=== PATIENT | male | born 1985 | race Caucasian/White ===

== ENCOUNTER 2016-12-11 09:03 | Emergency (ER) | payer OTHER, BC ==
[~2016-12-11] VITALS: Ht 193 cm; Wt 114.6 kg
[~2016-12-11 09:03] MED LIST: ASCO500T16 PO; ATOM100C PO; B-COTAB18; CHOL100010 PO; GARL400T4 PO; OMEG10007 PO; OMEP20CA9 PO
[2016-12-11 09:10] VITALS: TEMP 36.5; Ht 193 cm; Wt 114.6 kg
[2016-12-11] MEDS ORDERED: GARL1TAB13 PO (09:22)
[2016-12-11] MEDS ORDERED: CHOL1000 PO (09:22)
[2016-12-11] MEDS ORDERED: SODIUM CHLORIDE 0.9% 1000ML 1,000 ML IV ONE (09:45)
[2016-12-11 10:28] LABS: BASO % 0.2 %; BASO ABS # 0.03 K/uL (0-0.2); COMPLETE YES; EOS % 0.1 %; HEMATOCRIT 44.1 % (42-52); IG% 0.3 %; LYMPH % 8.6 %; LYMPH ABS # 1.14 K/uL (1.2-3.4); MEAN CELL VOLUME 87.3 fL (80-100); MEAN CORPUSCULAR HEMOGLOBIN 30.3 pg (25-34); MEAN CORPUSCULAR HGB CONC 34.7 g/dl (32-36); MEAN PLATELET VOLUME 10.2 fL (7.4-10.4); MONO % 8.7 %; NEUT % 82.1 %; PLATELET COUNT 195 K/uL (130-400); RED BLOOD COUNT 5.05 M/uL (4.7-6.1); WHITE BLOOD COUNT 13.28 K/uL (4.8-10.8)
[2016-12-11 10:47] LABS: BUN/CREATININE RATIO 9.2 (10-20); CALCIUM 8.9 mg/dl (8.5-10.1); CREATININE 1.4 mg/dl (0.60-1.40); POTASSIUM 3.7 mmol/L (3.5-5.1)
--- NOTE | 2016-12-11 11:11 | DIAGNOSTIC IMAGING REPORT ---
C-SPINE ROUTINE 4 OR 5 VIEWS CLINICAL HISTORY: Neck pain following trauma. COMPARISON STUDY: Cervical spine CT January 30, 2012. FINDINGS: Alignment of the cervical spine is anatomic. Vertebral body heights are maintained. There is no acute fracture. Prevertebral soft tissues are unremarkable. Facet joints are intact. There is minimal multilevel bony neural foraminal narrowing. IMPRESSION: No cervical spine fracture or subluxation. Electronically signed by: Rickie Ford M.D. 12/11/2016 11:10 AM Dictated Date/Time: 12/11/2016 11:07 AM
--- NOTE | 2016-12-11 11:13 | DIAGNOSTIC IMAGING REPORT ---
PA CHEST RADIOGRAPH AND UPRIGHT AND SUPINE AP RADIOGRAPHS OF THE ABDOMEN CLINICAL HISTORY: Fever and diarrhea. COMPARISON STUDY: No previous studies for comparison. FINDINGS: Lungs are clear. There is no pneumothorax or pleural effusion. Cardiac size is normal. Mediastinal contours are normal. There is no evidence for pulmonary edema. There is no free air. Bowel gas pattern is normal. IMPRESSION: 1. No free air or evidence of bowel obstruction. 2. No acute cardiopulmonary findings. Electronically signed by: Rickie Ford M.D. 12/11/2016 11:12 AM Dictated Date/Time: 12/11/2016 11:10 AM
[2016-12-11 11:30] VITALS: BP 123/72; PULSE 81; O2SAT 100
--- NOTE | 2016-12-11 16:23 | EMERGENCY ROOM VISIT NOTE ---
ED Visit Note First contact with patient: 09:20 Chief Complaint: Neck pain, fever and diarrhea. History of Present Illness: Mr. Walker is a 31-year-old white male who ambulates into the ED complaining of neck pain, fever and diarrhea. Patient reports she's been feeling well over the last few days. He reports he was at work yesterday at approximately 2:00 in the afternoon when a 1 inch tree limb fell approximately 3 feet and struck him at the base of the posterior neck in the bilateral shoulders. The limb did not strike his head. He did not have a loss of consciousness. Since that time he denies signs of head injury. Currently he is complaining of posterior neck pain in the area C6 and C7. He describes his pain as a combination of achy and burning. He rates his discomfort 7/10. The pain is nonradiating. Pain worsens with palpation of the painful area. He has not identified any alleviating factors related to the pain. He has not taken any medications for pain prior to arrival at the hospital. He denies any associated headache, dizziness, lightheadedness, abnormal neurological symptoms, upper extremity weakness/numbness/tingling. He reports when he went home last night approximately 10 PM he reports he developed a fever of 101F and then had the beginning of 6 episodes of light brown watery diarrheal stools. This is been associated with decreased appetite. He has not identified any aggravating or alleviating factors related to the fever or his diarrhea. He has not taken medications for the symptoms prior to arrival at the hospital. He denies any chills, sweats, skin eruptions , skin color changes, upper respiratory tract symptoms, abdominal pain, rectal bleeding, black/tarry stools, hematuria, urinary symptoms, recent antibiotic use , recent travel outside the [place], exposure to anybody with similar symptoms. Review of Systems: As noted above in history of present illness. All body systems were reviewed and found to be negative as noted above. Past Medical History: Seasonal allergies. Current Medications: Prilosec, Strattera, vitamin C, vitamin B, vitamin D3, garlic. Allergies to Medications: Penicillin. Social History: Patient is currently employed; he lives with his and children and feels safe in his home environment; he denies tobacco and alcohol use. Physical Examination: Vital Signs: Date Time Temp Pulse Resp B/P (MAP) Pulse Ox O2 Delivery O2 Flow Rate FiO2 12/11/16 11:30 81 16 123/72 100 Room Air 12/11/16 09:10 36.5 93 18 121/76 97 Room Air GENERAL: 31-year-old male in mild distress due to symptoms, nontoxic-appearing, afebrile and hemodynamically stable. NEUROLOGICAL: Awake, alert and oriented to person, place and time. Answering questions appropriately and following commands. Normal gait. Good hand eye coordination. No focal motor or sensory deficits. Romberg test negative. Pronator drift test negative. Cranial nerves II through XII grossly intact. Able to spell and count backwards. Good short-term and long-term recall. SKIN: Warm, dry and pink. Posterior Neck and Shoulders: Over the posterior neck in the area C6-C7 patient has 3 superficial abrasions and over the posterior shoulders at the level of the scapula patient has 2 small superficial abrasions. There are no signs of infection as area. There is no active bleeding. HEENT: Atraumatic and normocephalic. Skull: No bony deformities, depressions, tenderness or ecchymosis. No raccoon's eyes or coats signs. No drainage from the ears of the nostril; no hemotympanum. Face: No bony deformity, bony tenderness or swelling. PERRLA. EOMI without nystagmus. Sclera white and conjunctiva pink. No malocclusion. No intraoral trauma. Airway patent. Speech normal. No lymphadenopathy. Trachea midline. No jugular venous distention. BACK: No tenderness over the bony cervical and thoracic spine. Mild tenderness in the paraspinous muscles of the cervical spine in the area of C5- C7 with noted abrasions above. No bony deformity, crepitus or step-offs. No paraspinous muscle spasm. No CVA tenderness. THORAX: Lungs sounds are clear to auscultation and equal bilaterally with symmetrical chest wall. No crepitus, tenderness, subcutaneous air or deformities noted. HEART: Regular rate and rhythm. No gallops, rubs or murmurs are appreciated. ABDOMEN: Flat, soft and nontender. Positive bowel sounds in all quadrants. No guarding, rigidity or organomegaly. EXTREMITIES: Moves all extremities well on command and with purpose. All distal neurovascular statuses are intact and equal bilaterally. Upper Extremities: 5/5 muscle strength in all movements of the shoulders, elbows, forearms, wrists and hands. ED Course: Patient is assessed as noted above. Patient's medication list was reviewed. Laboratory Testing: Test 12/11/16 10:07 Range/Units White Blood Count 13.28 4.8-10.8 K/uL Red Blood Count 5.05 4.7-6.1 M/uL Hemoglobin 15.3 14.0-18.0 g/dL Hematocrit 44.1 42-52 % Mean Corpuscular Volume 87.3 80-100 fL Mean Corpuscular Hemoglobin 30.3 25-34 pg Mean Corpuscular Hemoglobin Concent 34.7 32-36 g/dl Platelet Count 195 130-400 K/uL Mean Platelet Volume 10.2 7.4-10.4 fL Neutrophils (%) (Auto) 82.1 % Lymphocytes (%) (Auto) 8.6 % Monocytes (%) (Auto) 8.7 % Eosinophils (%) (Auto) 0.1 % Basophils (%) (Auto) 0.2 % Neutrophils # (Auto) 10.90 1.4-6.5 K/uL Lymphocytes # (Auto) 1.14 1.2-3.4 K/uL Monocytes # (Auto) 1.16 0.11-0.59 K/uL Eosinophils # (Auto) 0.01 0-0.5 K/uL Basophils # (Auto) 0.03 0-0.2 K/uL RDW Standard Deviation 40.3 36.4-46.3 fL RDW Coefficient of Variation 12.6 11.5-14.5 % Immature Granulocyte % (Auto) 0.3 % Immature Granulocyte # (Auto) 0.04 0.00-0.02 K/uL Sodium Level 134 136-145 mmol/L Potassium Level 3.7 3.5-5.1 mmol/L Chloride Level 102 98-107 mmol/L Carbon Dioxide Level 28 21-32 mmol/L Anion Gap 4.0 3-11 mmol/L Blood Urea Nitrogen 13 7-18 mg/dl Creatinine 1.40 0.60-1.40 mg/dl Est Creatinine Clear Calc Drug Dose 103.9 ml/min Estimated GFR () 76.0 Estimated GFR (Non- 65.5 BUN/Creatinine Ratio 9.2 10-20 Random Glucose 105 70-99 mg/dl Calcium Level 8.9 8.5-10.1 mg/dl Total Bilirubin 1.3 0.2-1 mg/dl Aspartate Amino Transf (AST/SGOT) 19 15-37 U/L Alanine Aminotransferase (ALT/SGPT) 44 12-78 U/L Alkaline Phosphatase 64 45-117 U/L Total Protein 7.5 6.4-8.2 gm/dl Albumin 3.7 3.4-5.0 gm/dl Globulin 3.8 2.5-4.0 gm/dl Albumin/Globulin Ratio 1.0 0.9-2 Patient was unable to provide a stool sample for study. Acute abdominal series: Was read by myself and the radiologist showing a normal PA chest without any signs of infiltrations, effusions or pneumothorax. Normal heart silhouette and bony anatomy. No free air under the diaphragm. Abdominal component shows no signs of bowel obstruction. Cervical Spine X-Rays: Were read by myself and the radiologist showing no acute fractures or subluxations. Minimal multilevel neural foraminal narrowing. Normal-appearing vertebral heights. Patient was hydrated with normal saline; patient was offered pain medications and refused. Patient was reassessed multiple times during his stay in the emergency department. Patient's case was reviewed with Dr. Horton; we agreed on diagnostic approach, treatment, disposition and plan. Patient was educated about today's findings and instructed on his treatment plan ; he verbalizes understanding and agreement with this plan. Clinical Impression: Posterior neck abrasion. Posterior neck pain. Work related injury. Diarrhea. Fever. Disposition: Patient discharged home in stable condition; prior to departure he was reassessed and subjectively reported he was feeling slightly better. He rated his discomfort 5/5 and he reported he had no additional episodes of diarrhea or fever. Plan: Patient was encouraged ibuprofen and acetaminophen as needed for pain or fevers. Patient was educated on wound care and signs of infection. Patient was encouraged to stay well-hydrated with increased clear fluids. Patient was encouraged follow-up with [employer] for worsening neck pain, signs of infection or any new/concerning symptoms. Patient was encouraged to follow-up with physician for his fever and diarrhea. Patient was encouraged return ED for worsening diarrhea, bloody diarrhea, uncontrolled fevers, severe abdominal pain or any new/concerning symptoms.
== END 2016-12-11 11:56 | disposition home or self-care (01) ==
LOC: C.EDB 09:06 → C.EDA 11:56
DX: S10.91XA Abrasion of unspecified part of neck, initial encounter (principal); Y99.0 Civilian activity done for income or pay; W20.8XXA Other cause of strike by thrown, projected or falling object, initial encounter; R19.7 Diarrhea, unspecified; R50.9 Fever, unspecified; Z79.899 Other long term (current) drug therapy